=== PATIENT | male | born 1960 | race Caucasian/White ===

== ENCOUNTER 2019-12-17 16:23 | Inpatient (IN) | payer SELFPAY ==
[2019-12-17] MEDS ORDERED: NA CHLORIDE 0.9% 1,000 ML ONE (17:20)
[2019-12-17] MEDS ORDERED: PANTOPRAZOLE 40 MG INJ ONE (17:20)
[2019-12-17 18:10] LABS: Absolute Lymphocytes (CBC) 1.5 K/uL (0.7-4.9); Basophils % 0.3 % (0-1.3); Hematocrit 46.6 % (39.6-49.0); Lymphocytes % 9.5 % (15.3-44.8); MPV 8.6 fL (7.6-11.3); RBC Red Blood Cell Count 4.71 M/uL (4.33-5.43)
[2019-12-17 18:45] LABS: ALT/SGPT 17 U/L (12-78); AST/SGOT 11 U/L (15-37); Albumin 3.6 g/dL (3.4-5.0); Alkaline Phosphatase 106 U/L (45-117); BUN Blood Urea Nitrogen 7 mg/dL (7-18); Bicarbonate 28 mmol/L (21-32); Bilirubin Direct 0.1 mg/dL (0-0.2); Bilirubin Total 0.6 mg/dL (0.2-1.0); Glucose Level 83 mg/dL (74-106); Lipase 53 U/L (73-393); Potassium 4.2 mmol/L (3.5-5.1); Sodium Level 131 mmol/L (136-145)
--- NOTE | 2019-12-17 19:47 | RAD REPORT ---
EXAM DESCRIPTION: CT - Abdomen Pelvis W Contrast - 12/17/2019 7:12 pm CLINICAL HISTORY: ABD PAIN, right upper quadrant pain, black stools, history of GI bleed COMPARISON: No comparisons TECHNIQUE: Biphasic, helical CT imaging of the abdomen and pelvis was performed following 100 ml non -ionic IV contrast. No oral contrast administered. All CT scans are performed using dose optimization technique as appropriate and may include automated exposure control or mA/KV adjustment according to patient size. FINDINGS: No suspicious findings in the lung bases. The liver, spleen, and pancreas show no suspicious findings. Gallbladder and biliary tree are also wi thout suspicious finding. Symmetric renal function is seen with no hydronephrosis or suspicious renal mass. No pyelonephritis o r acute parenchymal process. No bladder abnormalities. No adrenal abnormalities. No gastric dilatation or wall thickening. No dilated small bowel loops. In the right mid abdomen ros g the pericolic gutter there is a 6 centimeter heterogeneous phlegmonous mass. Edema and stranding villarreal rrounds this collection. Collection is near the tip of the cecum. A separate normal appendix is not i dentifiable. The primary considerations are a perforated retrocecal appendicitis. Malignancy with per foration at the tip of the cecum cannot be excluded. The phlegmonous mass is not seen as a drainable fluid collection at this time. No free air or pneumatosis. No other focal area of inflammatory stranding. No hernia, mass or bulky l ymphadenopathy. No suspicious bony findings. IMPRESSION: [place] 26 centimeter heterogeneous phlegmonous mass in the right mid abdomen in the peric olic gutter. Primary considerations is perforated retrocecal appendicitis. Malignancy of the cecum with perforati on would be an additional consideration. The phlegmonous mass is not currently a drainable collection.
[2019-12-17] MEDS ORDERED: CIPROFLOXACIN 400mg IV 400 MG/200 ML BAG IV ONE (19:56)
[2019-12-17] MEDS ORDERED: FENTANYL CITR 100 MCG/2 ML ONE (20:37)
--- NOTE | 2019-12-17 22:50 | ER ---
Nurse's Notes [facility] Name: Riccardo Shankar Age: 59 yrs Sex: Male : 1960 Arrival Date: 12/17/2019 Time: 16:25 Bed 20 Private MD: Diagnosis: Unspecified acute appendicitis-perforated, retro-cecal Presentation: 12/17 16:35 Presenting complaint: Patient states: RUQ pain that began on November 24. Pt states aa5 "I've ran a fever about 4 times over the last 2 weeks and the highest was about 101.7 F". Pt also reports black stool this morning. Denies diarrhea. Transition of care: patient was not received from another setting of care. Onset of symptoms was November 2019. Risk Assessment: Do you want to hurt yourself or someone else? Patient reports no desire to harm self or others. Initial Sepsis Screen: Does the patient meet any 2 criteria? No. Patient's initial sepsis screen is negative. Does the patient have a suspected source of infection? No. Patient's initial sepsis screen is negative. Care prior to arrival: None. 16:35 Acuity: SRIDEVI 3 aa5 16:35 Method Of Arrival: Ambulatory aa5 Historical: - Allergies: 16:38 PENICILLINS; aa5 16:38 Codeine; aa5 - Home Meds: 16:38 None [Active]; aa5 - PMHx: 16:38 GI Bleed; aa5 - PSHx: 16:38 None; aa5 - Immunization history:: Adult Immunizations unknown. - Coronavirus screen:: The patient has NOT traveled to [place], [place], or [place] in the past 14 days. The patient has NOT had contact with known/suspected case of Coronavirus?. - Social history:: Smoking status: Patient reports the use of cigarette tobacco products, smokes one-half pack cigarettes per day. - Ebola Screening: : No symptoms or risks identified at this time. Screenin:54 Abuse screen: Denies threats or abuse. Nutritional screening: No deficits noted. tw2 Tuberculosis screening: No symptoms or risk factors identified. Fall Risk None identified. Assessment: 16:40 General: Appears in no apparent distress. slender, Behavior is calm, cooperative, tw2 appropriate for age. Pain: Complains of pain in abdomen. Neuro: Level of Consciousness is awake, alert, obeys commands, Oriented to person, place, time, situation. Cardiovascular: Heart tones S1 S2 Patient's skin is warm and dry. Respiratory: Airway is patent Respiratory effort is even, unlabored, Respiratory pattern is regular, symmetrical, Breath sounds are clear bilaterally. GI: Abdomen is flat, Bowel sounds present X 4 quads. Reports lower abdominal pain, upper abdominal pain, rectal bleeding. : No signs and/or symptoms were reported regarding the genitourinary system. EENT: No signs and/or symptoms were reported regarding the EENT system. Derm: No signs and/or symptoms reported regarding the dermatologic system. Skin Skin is dry, Skin temperature is warm. Musculoskeletal: Range of motion: intact in all extremities. 17:40 Reassessment: Patient appears in no apparent distress at this time. No changes from tw2 previously documented assessment. Patient and/or family updated on plan of care and expected duration. Pain level reassessed. Patient is alert, oriented x 3, equal unlabored respirations, skin warm/dry/pink. 18:40 Reassessment: Patient appears in no apparent distress at this time. No changes from tw2 previously documented assessment. Patient and/or family updated on plan of care and expected duration. Pain level reassessed. Patient is alert, oriented x 3, equal unlabored respirations, skin warm/dry/pink. 19:07 Reassessment: pt in CT at this time. tw2 19:15 Reassessment: Patient appears in no apparent distress at this time. Patient and/or family updated on plan of care and expected duration. Pain level reassessed. Patient is alert, oriented x 3, equal unlabored respirations, skin warm/dry/pink. 20:43 Reassessment: Patient appears in no apparent distress at this time. No changes from previously documented assessment. Patient and/or family updated on plan of care and expected duration. Pain level reassessed. Patient is alert, oriented x 3, equal unlabored respirations, skin warm/dry/pink. 21:58 Reassessment: Patient appears in no apparent distress at this time. No changes from previously documented assessment. Patient and/or family updated on plan of care and expected duration. Pain level reassessed. Patient is alert, oriented x 3, equal unlabored respirations, skin warm/dry/pink. Patient states feeling better. Patient states symptoms have improved. 23:00 Reassessment: Patient appears in no apparent distress at this time. No changes from previously documented assessment. Patient and/or family updated on plan of care and expected duration. Pain level reassessed. Patient is alert, oriented x 3, equal unlabored respirations, skin warm/dry/pink. MD at bedside explaining POC. 12/18 00:00 Reassessment: Patient appears in no apparent distress at this time. No changes from previously documented assessment. Patient and/or family updated on plan of care and expected duration. Pain level reassessed. Patient is alert, oriented x 3, equal unlabored respirations, skin warm/dry/pink. Pt admitted to ER hold. 12:14 Reassessment: Unable to give report at this time. GI Simms is discharging another pt. rb1 per PUNEET Atkinson. GI Simms will call me back. 12:25 Reassessment: Called report to GI Simms. Information from the SBAR was given. All rb1 questions asked and answered. Vital Signs: 12/17 16:38 BP 141 / 94; Pulse 81; Resp 16 S; Temp 98.2(O); Pulse Ox 97% on R/A; Weight 68.95 kg aa5 (R); Height 6 ft. 0 in. (182.88 cm) (R); Pain 3/10; 18:00 BP 126 / 106; Pulse 69; Resp 17; Pulse Ox 95% on R/A; tw2 19:15 BP 159 / 85; Pulse 86; Resp 18; Pulse Ox 99% on R/A; wh 20:43 BP 148 / 87; Pulse 79; Resp 18; Pulse Ox 97% on R/A; wh 21:58 BP 140 / 77; Pulse 73; Resp 18; Pulse Ox 98% on R/A; wh 23:00 BP 130 / 74; Pulse 80; Resp 18; Pulse Ox 95% on R/A; wh 12/18 00:00 BP 129 / 66; Pulse 80; Resp 18; Pulse Ox 97% on R/A; wh 12/17 16:38 Body Mass Index 20.61 (68.95 kg, 182.88 cm) aa5 ED Course: 12/17 16:25 Patient arrived in ED. as 16:27 Maria Esther Marie F[facility]-C [facility] snw 16:27 Tj Deluca MD is Attending Physician. snw 16:34 Arm band placed on. aa5 16:34 Bed in low position. Call light in reach. tw2 16:37 Triage completed. aa5 16:46 Cleopatra Hamm RN is Primary Nurse. tw2 17:55 Inserted saline lock: 20 gauge in left antecubital area, using aseptic technique. Blood tw2 collected. 18:20 Missed attempt(s): 20 gauge in right antecubital area. Bleeding controlled, band aid dh3 applied, catheter tip intact. 18:22 Inserted saline lock: 22 gauge in right forearm, using aseptic technique. dh3 19:06 Report given to GI Ndiaye. tw2 19:12 CT Abd/Pelvis - IV Contrast Only In Process Unspecified. EDMS 22:48 Sobia Jaimes MD is Hospitalizing Provider. [facility] 12/18 00:00 No provider procedures requiring assistance completed. Patient admitted, IV remains in wh place. 06:46 Primary Nurse role handed off by Cleopatra Hamm RN eb 12:10 Jacquie Armenta RN is Primary Nurse. rb1 13:15 No provider procedures requiring assistance completed. Patient admitted, IV remains in rb1 place. Administered Medications: 12/17 17:55 Drug: ProTONIX 40 mg Route: IVP; Site: left antecubital; tw2 18:59 Follow up: Response: No adverse reaction [facility] 12/18 02:49 Follow up: Response: No adverse reaction 12/17 18:01 Drug: NS 0.9% 1000 ml Route: IV; Rate: 125 ml/hr; Site: left antecubital; [facility] 12/18 02:49 Follow up: Response: No adverse reaction; IV Status: Infusion continued upon admission 12/17 19:58 Drug: Cipro 400 mg Volume: 200 ml; Route: IVPB; Infused Over: 60 mins; Site: right forearm; 12/18 02:49 Follow up: Response: No adverse reaction; IV Status: Completed infusion 12/17 20:37 Drug: fentaNYL (PF) 50 mcg Route: IVP; Site: left antecubital; 12/18 02:50 Follow up: Response: No adverse reaction; Pain is decreased; RASS: Alert and Calm (0) Outcome: 12/17 22:49 Decision to Hospitalize by Provider. sn 12/18 00:00 Admitted to ER Hold. Please see [facility] for further documentation. wh Condition: stable Instructed on the need for admit. 13:15 Patient left the ED. rb1 13:15 Admitted to Tele accompanied by tech, via stretcher, room 427, with chart, Report rb1 called to GI Simms 13:15 Condition: stable 13:15 Instructed on the need for admit. Signatures: Dispatcher [employer] EDMS Maria Esther Marie, CAR BLOCKER-C CAR BLOCKER-Csnw Ashanti Quiroz Audri, RN RN aa5 Jacquie Armenta, RN RN rb1 Cleopatra Hamm RN RN 2 Codi Damian 3 Zelda Rdz Mariam Rodgers Corrections: (The following items were deleted from the chart) 13:17 12:14 Reassessment: Called report to GI Simms. Information from the SBAR was given. All rb1 questions asked and answered. rb1
--- NOTE | 2019-12-17 22:50 | EDPHYS ---
Physician Documentation [facility] Name: Riccardo Shankar Age: 59 yrs Sex: Male : 1960 Arrival Date: 12/17/2019 Time: 16:25 Bed 20 Private MD: ED Physician Tj Deluca HPI: 12/17 17:46 This 59 yrs old Male presents to ER via Ambulatory with complaints of snw Epigastric Pain. 17:46 The patient presents with abdominal pain dark stools. Onset: The symptoms/episode snw began/occurred gradually, 3 week(s) ago, and became persistent. The symptoms do not radiate. Associated signs and symptoms: Pertinent positives: anorexia, Pertinent negatives: vomiting, vomiting blood. The symptoms are described as crampy. Severity of pain: At its worst the pain was moderate. The patient has experienced a previous episode, approximately 15 years ago, "gastric rupture". The patient has not recently seen a physician. Heavy ETOH, decreased lately. has had 11 beers over past 4 days. Historical: - Allergies: 16:38 PENICILLINS; aa5 16:38 Codeine; aa5 - Home Meds: 16:38 None [Active]; aa5 - PMHx: 16:38 GI Bleed; aa5 - PSHx: 16:38 None; aa5 - Immunization history:: Adult Immunizations unknown. - Coronavirus screen:: The patient has NOT traveled to [place], [place], or [place] in the past 14 days. The patient has NOT had contact with known/suspected case of Coronavirus?. - Social history:: Smoking status: Patient reports the use of cigarette tobacco products, smokes one-half pack cigarettes per day. - Ebola Screening: : No symptoms or risks identified at this time. ROS: 17:42 Constitutional: Negative for fever, chills, and weight loss, Eyes: Negative for injury, snw pain, redness, and discharge, ENT: Negative for injury, pain, and discharge, Neck: Negative for injury, pain, and swelling, Cardiovascular: Negative for chest pain, palpitations, and edema, Respiratory: Negative for shortness of breath, cough, wheezing, and pleuritic chest pain, Back: Negative for injury and pain, : Negative for injury, bleeding, discharge, and swelling, MS/Extremity: Negative for injury and deformity, Skin: Negative for injury, rash, and discoloration, Neuro: Negative for headache, weakness, numbness, tingling, and seizure. 17:42 Abdomen/GI: Positive for abdominal pain, black/tarry stool, of the right upper quadrant. Exam: 17:41 Constitutional: This is a well developed, well nourished patient who is awake, alert, snw and in no acute distress. Head/Face: Normocephalic, atraumatic. 17:41 ENT: Nares patent. No nasal discharge, no septal abnormalities noted. Tympanic membranes are normal and external auditory canals are clear. Oropharynx with no redness, swelling, or masses, exudates, or evidence of obstruction, uvula midline. Mucous membranes moist. Neck: Trachea midline, no thyromegaly or masses palpated, and no cervical lymphadenopathy. Supple, full range of motion without nuchal rigidity, or vertebral point tenderness. No Meningismus. Chest/axilla: Normal chest wall appearance and motion. Nontender with no deformity. No lesions are appreciated. Cardiovascular: Regular rate and rhythm with a normal S1 and S2. No gallops, murmurs, or rubs. Normal PMI, no JVD. No pulse deficits. Respiratory: Lungs have equal breath sounds bilaterally, clear to auscultation and percussion. No rales, rhonchi or wheezes noted. No increased work of breathing, no retractions or nasal flaring. Abdomen/GI: Soft, non-tender, with normal bowel sounds. No distension or tympany. No guarding or rebound. Mild tenderness of right mid abdomen, hyperactive bowel sounds throughout. Back: No spinal tenderness. No costovertebral tenderness. Full range of motion. Skin: Warm, dry with normal turgor. Normal color with no rashes, no lesions, and no evidence of cellulitis. MS/ Extremity: Pulses equal, no cyanosis. Neurovascular intact. Full, normal range of motion. Neuro: Awake and alert, GCS 15, oriented to person, place, time, and situation. Cranial nerves II-XII grossly intact. Motor strength 5/5 in all extremities. Sensory grossly intact. Cerebellar exam normal. Normal gait. 17:41 Eyes: Pupils: no acute changes, Extraocular movements: no acute changes, Conjunctiva: pale, bilaterally, mildly. Vital Signs: 16:38 BP 141 / 94; Pulse 81; Resp 16 S; Temp 98.2(O); Pulse Ox 97% on R/A; Weight 68.95 kg aa5 (R); Height 6 ft. 0 in. (182.88 cm) (R); Pain 3/10; 18:00 BP 126 / 106; Pulse 69; Resp 17; Pulse Ox 95% on R/A; tw2 19:15 BP 159 / 85; Pulse 86; Resp 18; Pulse Ox 99% on R/A; wh 20:43 BP 148 / 87; Pulse 79; Resp 18; Pulse Ox 97% on R/A; wh 21:58 BP 140 / 77; Pulse 73; Resp 18; Pulse Ox 98% on R/A; wh 23:00 BP 130 / 74; Pulse 80; Resp 18; Pulse Ox 95% on R/A; wh 12/18 00:00 BP 129 / 66; Pulse 80; Resp 18; Pulse Ox 97% on R/A; wh 12/17 16:38 Body Mass Index 20.61 (68.95 kg, 182.88 cm) aa5 MDM: 12/17 16:49 Patient medically screened. snw 20:25 Data reviewed: vital signs, nurses notes. Data interpreted: Pulse oximetry: on room air snw is 99 %. Interpretation: normal. Counseling: I had a detailed discussion with the patient and/or guardian regarding: the historical points, exam findings, and any diagnostic results supporting the discharge/admit diagnosis, the presence of at least one elevated blood pressure reading (>120/80) during this emergency department visit, lab results, radiology results, the need for further work-up and treatment in the hospital. Physician consultation: Marvin Shipley MD was called at 20:18, was contacted at 20:18, regarding consult. 20:26 Physician consultation: and will see patient in inpatient room, would like admission snw per Dr. Sobia Jaimes MD will contact Dr. Jaimes. 12/17 16:48 [facility] name[facility] 12/17 16:48 Order name: Stool Culture [facility] 12/17 16:48 Order name: Occult Blood [facility] 12/17 16:48 Order name: Basic Metabolic Panel; Complete Time: 18:51 [facility] 12/17 16:48 Order name: CBC with Diff; Complete Time: 18:25 [facility] 12/17 16:48 Order name: Creatinine for Radiology; Complete Time: 18:51 snw 12/17 16:48 Order name: Hepatic Function; Complete Time: 18:51 snw 12/17 16:48 Order name: Lipase; Complete Time: 18:51 w 12/18 03:26 Order name: CBC with Automated Diff; Complete Time: 10:10 EDMS 12/18 03:33 Order name: Protime (+INR); Complete Time: 10:10 EDMS 12/18 04:29 Order name: Lactate; Complete Time: 10:10 EDMS 12/18 04:39 Order name: Comprehensive Metabolic Panel; Complete Time: 10:10 EDMS 12/18 04:39 Order name: Lipid Profile; Complete Time: 10:10 EDMS 12/18 04:39 Order name: Magnesium; Complete Time: 10:10 EDMS 12/17 16:48 Order name: Labs collected and sent; Complete Time: 18:02 w 12/17 16:48 Order name: CT Abd/Pelvis - IV Contrast Only; Complete Time: 19:50 w 12/17 19:49 Order name: NPO; Complete Time: 19:51 w 12/17 19:49 Order name: Consult Surgery-Marvin Shipley MD (GENERAL SURGERY) [facility] 12/18 04:39 Order name: Thyroid Stimulating Hormone; Complete Time: 10:10 EDMS 12/18 04:49 Order name: Procalcitonin; Complete Time: 10:10 EDMS Administered Medications: 17:55 Drug: ProTONIX 40 mg Route: IVP; Site: left antecubital; [facility] 18:59 Follow up: Response: No adverse reaction [facility] 12/18 02:49 Follow up: Response: No adverse reaction 12/17 18:01 Drug: NS 0.9% 1000 ml Route: IV; Rate: 125 ml/hr; Site: left antecubital; 12/18 02:49 Follow up: Response: No adverse reaction; IV Status: Infusion continued upon admission 12/17 19:58 Drug: Cipro 400 mg Volume: 200 ml; Route: IVPB; Infused Over: 60 mins; Site: right wh forearm; 12/18 02:49 Follow up: Response: No adverse reaction; IV Status: Completed infusion 12/17 20:37 Drug: fentaNYL (PF) 50 mcg Route: IVP; Site: left antecubital; 12/18 02:50 Follow up: Response: No adverse reaction; Pain is decreased; RASS: Alert and Calm (0) Disposition: 17:04 Co-signature as Attending Physician, Tj Deluca MD I agree with the assessment and kdr plan of care. Disposition: 12/17/19 22:49 Hospitalization ordered by Sobia Jaimes for Inpatient Admission. Preliminary diagnosis is Unspecified acute appendicitis - perforated, retro-cecal. - Bed requested for Telemetry/MedSurg (Inpatient). - Status is Inpatient Admission. rb1 - Condition is Stable. - Problem is new. - Symptoms are unchanged. UTI on Admission? No Signatures: Dispatcher [employer] EDMS eDbbi Chan, ROLLER CHECKER-C ROLLER CHECKER-Ckb Tj Deluca MD MD [facility] Maria Esther Marie FNP-C ROLLER CHECKER-Csnw Ruchi Costello, GI RN aa5 Lily Toscano RN RN Jacquie Armenta RN RN rb1 Cleopatra Hamm RN RN tw2 Zelda Rdz Mariam Rodgers Corrections: (The following items were deleted from the chart) 12/17 23:59 22:49 Hospitalization Ordered by Sobia Jaimes MD for Inpatient Admission. Preliminary cg diagnosis is Unspecified acute appendicitis - perforated, retro-cecal. Bed requested for Telemetry/MedSurg (Inpatient). Status is Inpatient Admission. Condition is Stable. Problem is new. Symptoms are unchanged. UTI on Admission? No. snw 12/18 00:32 12/17 23:59 12/17/2019 22:49 Hospitalization Ordered by Sobia Jaimes MD for Inpatient cg Admission. Preliminary diagnosis is Unspecified acute appendicitis - perforated, retro-cecal. Bed requested for Telemetry/MedSurg (Inpatient). Status is Inpatient Admission. Condition is Stable. Problem is new. Symptoms are unchanged. UTI on Admission? No. cg 12/18 01:56 00:32 12/17/2019 22:49 Hospitalization Ordered by Sobia Jaimes MD for Inpatient cg Admission. Preliminary diagnosis is Unspecified acute appendicitis - perforated, retro-cecal. Bed requested for Telemetry/MedSurg (Inpatient). Status is Inpatient Admission. Condition is Stable. Problem is new. Symptoms are unchanged. UTI on Admission? No. cg 12:04 01:56 12/17/2019 22:49 Hospitalization Ordered by Sobia aJimes MD for Inpatient eb Admission. Preliminary diagnosis is Unspecified acute appendicitis - perforated, retro-cecal. Bed requested for [facility] ER HOLD. Status is Inpatient Admission. Condition is Stable. Problem is new. Symptoms are unchanged. UTI on Admission? No. cg 13:15 12:04 12/17/2019 22:49 Hospitalization Ordered by Sobia Jaimes MD for Inpatient rb1 Admission. Preliminary diagnosis is Unspecified acute appendicitis - perforated, retro-cecal. Bed requested for Telemetry/MedSurg (Inpatient). Status is Inpatient Admission. Condition is Stable. Problem is new. Symptoms are unchanged. UTI on Admission? No. eb
--- NOTE | 2019-12-17 23:52 | P.HP ---
Certification for Inpatient With expected LOS: >2 Midnights Practitioner: I am a practitioner with admitting privileges, knowledge of patient current condition, hospital course, and medical plan of care. Services: Services provided to patient in accordance with Admission requirements found in Title 42 Section 412.3 of the Code of Federal Regulations Patient History Date of Service: 12/18/19 Reason for admission: perforated appendix History of Present Illness: nohemy myles is a 59yoM w/ pmhx of tobacco/etoh dependence, and h/o gastric ulcer rupture/bleeding who presents w/ 2 weeks of abdominal pain. he states that yesterday his pain was significant and that he sought out medical managment. he reports the pain as RUQ and states that eating worsens the pain. he noted that he has been constipated and thus took 8 senokot in 48hrs just to relieve the constipation. but the moment he started to eat he started to have more abdominal discomfort. he reports back pain, bloating, fever, fluctuating appetite and chills. he denies N/V, cp, sob, wayne, dizziness, syncope. on ED evaluation he is found to have perforated appendix, thus gen surgery consulted and aware w/ recommendation for IV abx and they will consult. he drinks 4 beers daily x 2 years and smokes 1/2 pk/day > 30yrshx of ruptured gastric ulcer tobacco and etoh dependence Allergies Penicillins Allergy (Mild, Verified 12/18/19 17:40) Hives/Rash codeine Allergy (Verified 12/18/19 02:36) Anaphylaxis tramadol Allergy (Verified 12/18/19 17:40) Nausea/Vomiting Home Medications: NK [No Home Meds] 12/18/19 Physical Examination - Physical Exam General: Alert, In no apparent distress, Oriented x3, Cooperative, Other ( slender male, conversant, a/ox3, appears fraile.) HEENT: Atraumatic Neck: Supple Respiratory: Diminished, Inspiratory wheezes Cardiovascular: No edema, No murmurs Capillary refill: <2 Seconds Gastrointestinal: No rebound, Other (soft, but noted RUQ pain w/ light palpation ), Hyperactive, Tenderness ( at RUQ ) Musculoskeletal: No swelling Integumentary: No rashes, No breakdown, No cyanosis Neurological: Normal speech, Other (gait not tested) External genitalia: Deferred Rectal: Deferred - Studies Laboratory Data (last 24 hrs) 12/17/19 17:40: Creatinine 0.80 12/17/19 17:40: WBC 15.8 H, Hgb 15.5, Hct 46.6, Plt Count 373 12/17/19 17:40: Sodium 131 L, Potassium 4.2, BUN 7, Creatinine 0.84, Glucose 83 , Total Bilirubin 0.6, AST 11 L, ALT 17, Alkaline Phosphatase 106, Lipase 53 L Microbiology Data (last 24 hrs): 12/17/19 16:48 Stool Occult Blood - Final PERSONAL FITNESS TRAINER Assessment and Plan - Plan 59yo M admitted w/ perforated appendix - w/ hx of ruptured gastric ulcer/bleeding made npo and c/w wilth IVF and reassess. will allow ice chips gen surg consulted and aware of patient tele monitoring, a1c, tsh, lipid panel obtain procal, blood cultures supplemental o2, analgesics and monitor UOP nicotine and etoh dependence counseled on cessation educated on dieteay and lifestyle changes. DVT avoid AC, c/w SCD - Advance Directives Does patient have a Living Will: No Does patient have a Durable POA for Healthcare: No
[2019-12-18] MEDS ORDERED: ONDANSETRON 4 MG/2 ML VIAL IV PRN (00:57)
[2019-12-18] MEDS ORDERED: IPRATROPIUM BROM 0.5MG/2.5ML NEB PRN (00:57)
[2019-12-18] MEDS ORDERED: ALBUTEROL 2.5 MG/3 ML NEB SOL NEB PRN (00:57)
[2019-12-18] MEDS ORDERED: LORAZEPAM 0.5 MG TABLET PO PRN ×2 (00:57)
[2019-12-18] MEDS: NA CHLORIDE 0.9% 1,000 ML IV SCH ×4 (01:00→23:58)
[2019-12-18 03:25] LABS: Basophils % 0.1 % (0-1.3); Hematocrit 47.7 % (39.6-49.0); MPV 8.4 fL (7.6-11.3); RBC Red Blood Cell Count 4.89 M/uL (4.33-5.43)
[2019-12-18 03:28] LABS: Protime INR 1.31
[2019-12-18] MEDS: NICOTINE 14 MG/PAT TD SCH ×3 (04:00→09:00)
[2019-12-18] MEDS ORDERED: MORPHINE 2 MG/ML SYR ONE ×2 (04:04→10:05)
[2019-12-18] MEDS: MORPHINE 2 MG/ML SYR IV PRN ×4 (04:08→19:45)
[2019-12-18 04:36] LABS: ALT/SGPT 13 U/L (12-78); AST/SGOT 7 U/L (15-37); Albumin 3.1 g/dL (3.4-5.0); Alkaline Phosphatase 92 U/L (45-117); BUN Blood Urea Nitrogen 6 mg/dL (7-18); Bicarbonate 25 mmol/L (21-32); Bilirubin Total 0.8 mg/dL (0.2-1.0); Glucose Level 99 mg/dL (74-106); HDL Cholesterol 41 mg/dL (40-60); LDL Cholesterol, Calculated 100 (<130); Magnesium 2.1 mg/dL (1.8-2.4); Potassium 4.1 mmol/L (3.5-5.1); Sodium Level 133 mmol/L (136-145)
[2019-12-18] MEDS ORDERED: NA CHLORIDE 0.9% 1,000 ML ONE (08:27)
[2019-12-18] MEDS ORDERED: NICOTINE 21 MG/PAT TD ONE (08:27)
[2019-12-18] MEDS ORDERED: CIPROFLOXACIN 400mg IV 400 MG/200 ML BAG IV SCH (09:00)
[2019-12-18] MEDS ORDERED: FOLIC ACID 1 MG, MULTIVITAMINS INJ 10 ML, THIAMINE HCL 100 MG in NA CHLORIDE 0.9% 1,000 ML IV SCH (09:00)
[2019-12-18] MEDS ORDERED: PIPER/TAZO/NS 3.375gm 3.375 GM/100 ML BAG IVPB SCH (09:00)
[2019-12-18] MEDS: METRONIDAZOLE 500mg IVPB 500 MG/100 ML BAG IV SCH ×3 (12:00→23:56)
--- NOTE | 2019-12-18 12:52 | CON ---
Date of Consultation: 12/17/2019 Reason For Consultation: Abdominal pain. History Of Present Illness: Patient is a 59-year-old gentleman with right-sided abdominal pain appro ximately 3 weeks in duration, off and on, associated with 1 episode of vomiting. He has chronic depe ndence on alcohol and tobacco. Denies any weight loss. He says he had some dark bloody stool at 1 p oint. The pain is in the right upper quadrant, right middle quadrant, and a little bit in the right lower quadrant. He has had fluctuating fever, chills, anorexia. No sore throat, runny nose, cough, headaches, or dizziness. No chest pain. Review of Systems: Otherwise unremarkable. Medical History: History of gastric ulcers. Past Surgical History: Either he had a Ken patch done or an EGD with control of bleeding from an ulcer, he is not sure. Allergies: INCLUDE CODEINE AND PENICILLIN. Social History: He does smoke and drink alcohol. He has been counseled. Family History: Noncontributory. Physical Examination: Vital Signs: Stable. He is currently afebrile. General: He is awake, alert, oriented x3. Cranial nerves 2 through 12 are grossly within normal ohara its. Neck: No neck masses. No JVD. Throat clear. Neck supple. Chest: Clear. Heart: S1 and S2. Abdomen: Soft, nondistended. Positive bowel sounds. Positive right upper, middle, and lower quadra nt tenderness with minimal rebound. No rigidity or guarding. Extremities: Adequately perfused. Nontender. Neuro: Nonfocal. Laboratory Data: White count on admission was 13.8, currently is 16.3. There is a left shift. INR is 1.3. Chemistry reviewed. His procalcitonin is normal. His lactic acid is normal. CT of the abd omen and pelvis reviewed. It shows a 6 cm phlegmonous mass in the right mid abdomen in the pericolic gutter. Primary consideration is perforated retrocecal appendicitis. Malignancy to the cecum with perforation would be an additional consideration and this is not amenable to percutaneous drainage at this point. Assessment: Perforated appendicitis likely with phlegmonous mass. Recommendations: Continue n.p.o., IV fluids, IV antibiotics. Serial abdominal exam. If he can impr ove on antibiotics, he can be discharged with a followup and if this phlegmonous mass liquifies, then he would be amenable to percutaneous drainage followed by interval colonoscopy, followed by interval appendectomy. I agree with DT prophylaxis, which the patient is on. We will add Flagyl to Jeanethro th e patient is on, and we will follow this patient while in the hospital. ROSSY/DEBORA Voice ID: [id number] Report ID: [id number]
--- NOTE | 2019-12-18 17:31 | PN ---
Date of Progress Note: 12/18/2019 Subjective: Patient is seen and examined. Chart reviewed and case discussed with RN and Dr. Shipley. Patient still reports some pain having high fevers, temperature of 101.8. Medications: List reviewed. Physical Examination: Vital Signs: T current is 99, T-max 101.8, heart rate 96, blood pressure 181/80 , respirations 20, O2 of 98% on room air. General: Awake, alert, oriented x3, in some mild distress, appears older than stated age ill-appearing male. CV: S1, S2. Regular rate and rhythm. Respiratory: Moving air well bilaterally. Abdomen: Soft. Tenderness to palpation in the right lower quadrant. Voluntary guarding is present. No rigidity. Hypoactive bowel sounds. Extremities: No clubbing, cyanosis, edema. Neurologic: Nonfocal. Laboratory Data: Sodium 133, potassium 4.1, chloride 102, CO2 of 25, BUN 6, creatinine 0.74, glucose 99, lactate 0.7, calcium 8.6, magnesium 2.1. Procalcitonin less than 0.05. TSH 1.820. WBC 16.3, H and H 16 and 47.7, platelets 355, neutrophils 84%. Assessment: A 59-year-old male with: 1. Perforated appendix with phelgmon abscess. We will continue with IV antibiotics. Case discussed with Dr. Shipley. Conservative treatment for now. Continue n.p.o. status. Patient will be spiking high fevers. 2. Hyponatremia. We will continue with IV fluids and monitor. 3. History of gastric ulcers. 4. Nicotine dependance: continuous, uncomplicated. Counseled. 5. Etoh abuse: monitor for signs of withdrawal. Multivitamins Plan: DVT prophylaxis, SCDs. Continue with IV antibiotics. Patient will eventually need colonoscopy and resection later on per Dr. Shipley. SA/MODL Voice ID: [id number] Report ID: [id number] MTDD
[2019-12-18 17:48] LABS: Urine Appearance CLEAR; Urine Bilirubin NEGATIVE (NEG); Urine Blood 2+ (NEG); Urine Color YELLOW; Urine Glucose NEGATIVE (NEG); Urine Protein NEGATIVE (NEG); Urine Specific Gravity 1.015 (1.005-1.030)
[2019-12-18 18:21] LABS: Urine Bacteria <20 /HPF (NONE SEEN); Urine Culture Reflex Order NOT NEEDED; Urine RBC <5 /HPF (NONE SEEN)
[2019-12-18] MEDS: CIPROFLOXACIN 400mg IV 400 MG/200 ML BAG IV SCH ×2 (19:45→21:00)
[2019-12-19] MEDS: MORPHINE 2 MG/ML SYR IV PRN ×4 (02:48→19:45)
[2019-12-19] MEDS: METRONIDAZOLE 500mg IVPB 500 MG/100 ML BAG IV SCH ×3 (06:16→17:44)
[2019-12-19 06:35] LABS: Absolute Lymphocytes (CBC) 1.2 K/uL (0.7-4.9); Basophils % 0.7 % (0-1.3); Hematocrit 41.7 % (39.6-49.0); Lymphocytes % 7.5 % (15.3-44.8); RBC Red Blood Cell Count 4.25 M/uL (4.33-5.43)
[2019-12-19 06:42] LABS: Magnesium 2.1 mg/dL (1.8-2.4); Potassium 4.4 mmol/L (3.5-5.1)
[2019-12-19] MEDS: NA CHLORIDE 0.9% 1,000 ML IV SCH ×2 (07:00→17:00)
[2019-12-19] MEDS: CIPROFLOXACIN 400mg IV 400 MG/200 ML BAG IV SCH ×2 (08:43→21:02)
[2019-12-19] MEDS: NICOTINE 14 MG/PAT TD SCH (08:49)
--- NOTE | 2019-12-19 11:53 | PN ---
Date of Progress Note: 12/19/2019 Patient was awake, alert, feels better. Vital signs are stable. Afebrile. White count is still vlad vated to 15,000. The abdomen is soft, nondistended. There is tenderness in the right side, but suzy le bit less than yesterday. Assessment: Likely perforated appendicitis with phlegmon. Recommendations: Continue IV antibiotics, serial abdominal exam. We will repeat the CAT scan tomorr ow to see if it is beginning to liquify, put him on clear liquids today. We will follow this patient . ROSSY/DEBORA Voice ID: [id number] Report ID: [id number]
--- NOTE | 2019-12-19 12:32 | PN ---
Date of Progress Note: 12/19/2019 Subjective: Patient is seen and examined. Chart reviewed and case discussed with RN and Dr. Shipley. Plan is for repeat CT in a.m. Patient is still complaining of significant amount of pain. at the bedside. Treatment plan explained. All questions answered. Medications: List reviewed. Physical Examination: Vital Signs: Temperature 100.2, heart rate 81, blood pressure 126/74, respirations 18, O2 of 93% on room air. General: Awake, alert, oriented x3, in mild distress, appears older than stated age. CV: S1, S2. Regular rate and rhythm. Peripheral pulses present. Respiratory: Moving air well bilaterally. No wheezing or stridor. Gastrointestinal: Abdomen is tender to palpation in the right lower quadrant. Hypoactive bowel soun ds. Minimal distention. Voluntary guarding is present. No rigidity. Extremities: No clubbing, cyanosis, or edema. Neurologic: Nonfocal. Laboratory Data: Sodium 134, potassium 4.4, chloride 102, CO2 of 26, BUN 8, creatinine 0.9, glucose 92, calcium 8.6, phosphorus 3, magnesium 2. WBC 15.7, H and H of 13.9 and 41.7, platelets 324, neutr ophils 81%. Stool cultures pending. Assessment And Plan: A 59-year-old male with: 1.Perforated appendix with abscess and phlegmonous mass in the right mid abdomen and the pericolic g utter. Continue with IV antibiotics. Patient still continues to spike fevers. We will need to obta in blood cultures and monitor. Plan is for repeat CT in a.m. per Surgery. 2.Hyponatremia, improving. We will continue with IV fluids and monitor. 3.History of gastric ulcer. We will start on PPI. Disposition: Likely in the next 48 to 72 hours, pending clinical improvement. /DEBORA Voice ID: [id number] Report ID: [id number]
[2019-12-19] MEDS: FOLIC ACID 1 MG, MULTIVITAMINS INJ 10 ML, THIAMINE HCL 100 MG in NA CHLORIDE 0.9% 1,000 ML IV SCH (12:45)
[2019-12-19] MEDS: FAMOTIDINE 20 MG/2 ML VIAL IV SCH (21:02)
[2019-12-20] MEDS: METRONIDAZOLE 500mg IVPB 500 MG/100 ML BAG IV SCH ×4 (00:08→17:06)
[2019-12-20] MEDS: NA CHLORIDE 0.9% 1,000 ML IV SCH ×4 (00:10→23:00)
[2019-12-20] MEDS: MORPHINE 2 MG/ML SYR IV PRN ×4 (03:03→19:22)
[2019-12-20 04:18] LABS: Absolute Lymphocytes (CBC) 0.8 K/uL (0.7-4.9); Basophils % 0.4 % (0-1.3); Hematocrit 39.9 % (39.6-49.0); Lymphocytes % 5.4 % (15.3-44.8); MPV 8.1 fL (7.6-11.3); RBC Red Blood Cell Count 4.07 M/uL (4.33-5.43)
[2019-12-20 04:30] LABS: BUN Blood Urea Nitrogen 8 mg/dL (7-18); Bicarbonate 29 mmol/L (21-32); Glucose Level 103 mg/dL (74-106); Potassium 4.2 mmol/L (3.5-5.1); Sodium Level 131 mmol/L (136-145)
[2019-12-20] MEDS: LORazepam 2 MG/ML VIAL IV PRN ×2 (05:37→22:25)
[2019-12-20] MEDS: FAMOTIDINE 20 MG/2 ML VIAL IV SCH ×2 (08:26→21:23)
[2019-12-20] MEDS: NICOTINE 14 MG/PAT TD SCH (08:26)
[2019-12-20] MEDS: CIPROFLOXACIN 400mg IV 400 MG/200 ML BAG IV SCH ×2 (08:26→21:23)
[2019-12-20] MEDS: FOLIC ACID 1 MG, MULTIVITAMINS INJ 10 ML, THIAMINE HCL 100 MG in NA CHLORIDE 0.9% 1,000 ML IV SCH (10:28)
[2019-12-20] MEDS ORDERED: DIPHENHYDRAMINE 50 MG/ML VIAL IV ONE (10:46)
--- NOTE | 2019-12-20 13:08 | RAD REPORT ---
EXAM DESCRIPTION: CT - Abdomen Pelvis W/Wo Contrast - 12/20/2019 11:23 am CLINICAL HISTORY: Abdominal abscess COMPARISON: December 17, 2019 TECHNIQUE: Computed axial tomography of the abdomen and pelvis was obtained. Unenhanced and enhanced images obtained. 100 cc Isovue-300 administered intravenously. Oral contrast given All CT scans are performed using dose optimization technique as appropriate and may include automated exposure control or mA/KV adjustment according to patient size. FINDINGS: The evaluation of solid organs, vessels and bowel is limited secondary to the lack of con trast administration. The multitude loculated abscess within the right lower quadrant has mildly increased in size. The lar gest low-density component measures 5 centimeters and abuts the right iliacus muscle which is thicken ed. The anterior loculated components measuring total 5.5 centimeters. Free air is not seen. The wall of the right cecum is thickened probably secondary inflammation A large diverticulum stems from the distal duodenum IMPRESSION: Multiloculated right lower quadrant abscess mildly increased in size. Perforated appendicitis is considered the most likely etiology
--- NOTE | 2019-12-20 19:11 | PN ---
Date of Progress Note: 12/20/2019 Subjective: Patient is seen and examined. Chart reviewed and case discussed with RN and Dr. Shipley. Patient is still having significant amount of pain in his abdomen, tolerating clears. Medication List: Reviewed. Physical Examination: Vital Signs: Temperature 98.4, heart rate 72, blood pressure 129/71, respirations 16, O2 of 96% on r oom air. General: Awake, alert, oriented x3, in some mild distress due to pain, appears older than stated age , ill-appearing male. CV: S1, S2. Regular rate and rhythm. Peripheral pulses present. Respiratory: Moving air well bilaterally. No wheezing or stridor. No use of accessory muscles. Gastrointestinal: Abdomen is soft. Tenderness to palpation in the right lower quadrant. Voluntary guarding is present. No rigidity. Hypoactive bowel sounds. Extremities: No clubbing, cyanosis, or edema. Neurologic: Nonfocal. Laboratory Data: Sodium 131, potassium 4.2, chloride 97, CO2 of 29, BUN 8, creatinine 0.83, glucose 103, calcium 8.4. WBC 14.4, H and H 13.3 and 39.9, platelets 330, neutrophils 82%. Blood cultures, no growth to date. Occult blood not present. Fecal leukocytes and cultures are pending. CT scan of the abdomen and pelvis, discussed with Dr. Shipley and Dr. Casey. Multiloculated right lower quadr ant abscess, mildly increased in size. Perforated appendicitis is considered the most likely etiolog y. Assessment: A 59-year-old male with: 1.Perforated appendicitis. We will continue with IV antibiotics. Patient does have phlegmonous mas s and abscess. Repeat CT scan with contrast shows multiloculated abscess. Unable to be drained by I R. We will go for laparoscopic drain placement by Dr. Shipley in [facility]. GI has been consulted. 2.Hyponatremia, worsening. We will continue with IV fluids and monitor. 3.History of gastric ulcer. Continue PPI. 4.Nicotine dependence and cigarette smoking. Counseled. Plan: We will anticipate surgery in [facility]. SA/MODL Voice ID: [id number] Report ID: [id number]
--- NOTE | 2019-12-20 19:56 | PN ---
Date of Progress Note: 12/20/2019 Subjective: Patient is awake and alert, still with right-sided abdominal pain. Vitals are stable. He has intermittent spike of temperature at 100.5, last night. Laboratory Data: Shows white count to be 14.4, with a left shift. I repeated the CT of the abdomen and pelvis and it shows multiloculated right lower quadrant abscess, mildly increased in size, and I discussed the case with Dr. Casey, he is not amenable to percutan eous drainage. Assessment: Intraabdominal abscess likely secondary to perforated appendicitis. Recommendations: As conservative medical treatment has failed to improve this patient and he is not amenable to percutaneous drainage. Therefore, we will take the patient to the operating room for lowell gnostic laparoscopy, possible open appendectomy and drainage of intraabdominal abscess. Patient unde rstands the risks, benefits, and alternatives and agrees to procedure. Plan of care was discussed with Dr. Barksdale. ROSSY/DEBORA Voice ID: [id number] Report ID: [id number]
[2019-12-21] MEDS: METRONIDAZOLE 500mg IVPB 500 MG/100 ML BAG IV SCH ×4 (00:36→17:51)
[2019-12-21] MEDS: MORPHINE 2 MG/ML SYR IV PRN ×2 (00:37→05:37)
[2019-12-21 04:18] LABS: Basophils % 0.4 % (0-1.3); Hematocrit 38.1 % (39.6-49.0); MPV 8.6 fL (7.6-11.3); RBC Red Blood Cell Count 3.88 M/uL (4.33-5.43)
[2019-12-21 04:32] LABS: BUN Blood Urea Nitrogen 8 mg/dL (7-18); Bicarbonate 27 mmol/L (21-32); Glucose Level 89 mg/dL (74-106); Potassium 3.6 mmol/L (3.5-5.1); Sodium Level 131 mmol/L (136-145)
[2019-12-21] MEDS: NICOTINE 14 MG/PAT TD SCH (07:28)
[2019-12-21] MEDS: FAMOTIDINE 20 MG/2 ML VIAL IV SCH ×2 (07:28→19:49)
[2019-12-21] MEDS ORDERED: KCL 20 MEQ/100 mL IVPB 20 MEQ/100 ML BAG IV SCH (08:00)
[2019-12-21] MEDS: CIPROFLOXACIN 400mg IV 400 MG/200 ML BAG IV SCH ×2 (08:39→19:48)
[2019-12-21] MEDS: NA CHLORIDE 0.9% 1,000 ML IV SCH (09:00)
[2019-12-21] MEDS ORDERED: propofoL 200 MG/20 ML VIAL IV ONE (09:57)
[2019-12-21] MEDS ORDERED: ROCURONIUM 50 MG/5 ML VIAL IV ONE (09:58)
[2019-12-21] MEDS ORDERED: LIDOCAINE 1% MPF 5 ML VIAL ONE (09:58)
[2019-12-21] MEDS ORDERED: MIDAZOLAM HCL 2 MG/2 ML INJ ONE (09:58)
[2019-12-21] MEDS ORDERED: FENTANYL CITR 100 MCG/2 ML ONE ×2 (09:58→11:01)
[2019-12-21] MEDS ORDERED: GLYCOPYRROLATE 0.2 MG/ML SYR ONE (11:03)
[2019-12-21] MEDS ORDERED: ONDANSETRON 4 MG/2 ML VIAL ONE (11:03)
[2019-12-21] MEDS ORDERED: NEOSTIGMINE 1 MG/ML -5 ML ONE (11:03)
[2019-12-21] MEDS ORDERED: KETOROLAC 30 MG/ML INJ ONE (11:03)
[2019-12-21] MEDS ORDERED: NA CHLORIDE 0.9% 1,000 ML ONE (11:06)
--- NOTE | 2019-12-21 11:20 | P.OP ---
Plastic Tool Maker: Maricel NGO Preoperative diagnosis: Perforated Appendicitis with Abscess Postoperative diagnosis: same Primary procedure: Diag Lap, Exp Lap, Appy, Drainage Intra-abdominal abscess Anesthesia: gen Estimated blood loss: min Specimen: C&S, Appy Findings: as above Complications: None Drain(s): MICHAEL drain Transferred to: Recovery Room Condition: Good
[2019-12-21] MEDS ORDERED: PROMETHAZINE INJ 25 MG/ML AMP ONE (11:34)
[2019-12-21] MEDS: HYDROMORPHONE HCL 2 MG/ML inj ONE ×4 (11:41→12:04)
[2019-12-21] MEDS: FOLIC ACID 1 MG, MULTIVITAMINS INJ 10 ML, THIAMINE HCL 100 MG in NA CHLORIDE 0.9% 1,000 ML IV SCH (12:32)
[2019-12-21 16:08] LABS: C.diff Antigen/Toxin Ag neg : Tox neg (NEG : NEG)
[2019-12-21] MEDS: HYDROMORPHONE HCL 1 MG/ML INJ IV PRN ×3 (17:04→22:49)
--- NOTE | 2019-12-21 19:32 | P.PN ---
Subjective Date of Service: 12/21/19 Chief Complaint: perforated appendix Status post open appendectomy and drainage of abscess. Patient seen in the postop period. He is currently tolerating clear liquid diet. Physical Examination - Vital Signs Temperature: 98.1 F Blood Pressure: 109/74 Pulse: 77 Respirations: 20 Pulse Ox (%): 99 - Physical Exam General: Alert, In no apparent distress, Oriented x3 HEENT: Mucous membr. moist/pink Neck: Supple, JVD not distended Respiratory: Clear to auscultation bilaterally, Normal air movement Cardiovascular: No edema, Regular rate/rhythm, Normal S1 S2 Gastrointestinal: Non-distended Musculoskeletal: No swelling Integumentary: No rashes Neurological: Normal speech, Normal strength at 5/5 x4 extr Assessment And Plan - Current Problems (Diagnosis) (1) Perforated appendix Current Visit: Yes Status: Acute (2) Intra-abdominal abscess Current Visit: Yes Status: Acute (3) History of gastric ulcer Current Visit: Yes Status: Acute (4) Hyponatremia Current Visit: Yes Status: Acute - Plan Continue current antibiotics. General surgery is following Supportive measures with IV NS, IV pain medication. Continue IV pepcid. Monitor CBC and blood chemistry. DVT prophylaxis with Lovenox.
[2019-12-21] MEDS: ONDANSETRON 4 MG/2 ML VIAL IV PRN (21:39)
[2019-12-21] MEDS: LORazepam 2 MG/ML VIAL IV PRN (21:39)
--- NOTE | 2019-12-21 22:25 | OP ---
Date of Procedure: 12/21/2019 Surgeon: Marvin Shipley MD Sand Mixer Operator: HUBER Tinajero. Preoperative Diagnosis: Perforated appendicitis with abscess. Postoperative Diagnosis: Perforated appendicitis with abscess. Procedure: Diagnostic laparoscopy, exploratory laparotomy, appendectomy, drainage of intraabdominal abscess. Estimated Blood Loss: Minimal. Specimen: Pus in appendix. Findings: As above. Anesthesia: General. Complications: None. Drains: MICHAEL #10 flat x2. Patient tolerated the procedure in stable condition, taken to Recovery in good general condition. Operative Note: Patient was brought to the OR and placed in supine position. General anesthesia was begun. Patient was prepped and draped in usual sterile fashion. Marcaine 0.5% was infiltrated loca lly. 15-blade was used to make a 1 cm infraumbilical midline incision. Subcutaneous tissue divided. Fascia was identified and divided. #1 Vicryl stay suture was placed. Peritoneal cavity was entere d with sharp and blunt dissection. 12 mm trocar was placed into the peritoneal cavity under direct v ision. Pneumoperitoneum was established and then two 5 mm trocars were placed, one in the suprapubic region, one in the left lower quadrant. Laparoscopy revealed a very hard mass which was hard to dis sect laparoscopically, was posterior and lateral to the ascending colon. At this point, I do not wan t to take risking injury to the colon, therefore I opted to open the patient which was done with lowe r midline incision. Subcutaneous tissue divided. Fascia was identified and divided and abdomen was exposed and then the right lateral pericolic gutter was mobilized carefully. Pus was encountered. C ultures were done. There were 2 separate pockets of multiloculated abscess. Wound was irrigated. B leeding controlled with cautery. The appendix was identified in the proximal part of the appendix, a ppeared to be perforated. Mesoappendix and base of the appendix clearly identified. Endo-GONZALO stapli ng device used to divide both structures. Appendix sent to Pathology. Then, after thorough irrigati on of the abdomen no other evidence of disease seen. No bleeding, no bowel injury. Helder lizama x2 placed, one in the right pericolic gutter where the abscess was, the other in the pelvis and t he drain was secured with 3-0 nylon. Midline fascia was closed with #2 nylon. Wound was irrigated. Bleeding controlled with cautery and aminata were used to close the skin sterile dressing was applie d. Patient was awakened and taken to Recovery in good general condition. ROSSY/DEBORA Voice ID: [id number] Report ID: [id number]
[2019-12-22] MEDS: METRONIDAZOLE 500mg IVPB 500 MG/100 ML BAG IV SCH ×5 (00:26→23:47)
[2019-12-22] MEDS: NA CHLORIDE 0.9% 1,000 ML IV SCH ×3 (00:26→15:00)
[2019-12-22 05:14] LABS: Absolute Lymphocytes (CBC) 0.6 K/uL (0.7-4.9); Basophils % 0.3 % (0-1.3); Hematocrit 38.1 % (39.6-49.0); Lymphocytes % 5.1 % (15.3-44.8); MPV 8.6 fL (7.6-11.3); RBC Red Blood Cell Count 3.92 M/uL (4.33-5.43)
[2019-12-22] MEDS: HYDROMORPHONE HCL 1 MG/ML INJ IV PRN ×4 (05:15→20:28)
[2019-12-22 05:33] LABS: BUN Blood Urea Nitrogen 5 mg/dL (7-18); Bicarbonate 27 mmol/L (21-32); Glucose Level 102 mg/dL (74-106); Phosphorus 2.4 mg/dL (2.5-4.9); Potassium 3.5 mmol/L (3.5-5.1); Sodium Level 129 mmol/L (136-145)
[2019-12-22 05:42] LABS: Blood Morphology Comment NOT SEEN (NOT SEEN); Platelet Estimate ADEQ
[2019-12-22] MEDS: CIPROFLOXACIN 400mg IV 400 MG/200 ML BAG IV SCH ×2 (08:32→20:27)
[2019-12-22] MEDS: ENOXAPARIN 40 MG/0.4 ML SQ SCH (08:32)
[2019-12-22] MEDS: NICOTINE 14 MG/PAT TD SCH (08:32)
[2019-12-22] MEDS: FAMOTIDINE 20 MG/2 ML VIAL IV SCH ×2 (08:35→20:28)
[2019-12-22] MEDS: FOLIC ACID 1 MG, MULTIVITAMINS INJ 10 ML, THIAMINE HCL 100 MG in NA CHLORIDE 0.9% 1,000 ML IV SCH (10:55)
--- NOTE | 2019-12-22 11:50 | P.PN ---
Subjective Date of Service: 12/22/19 Chief Complaint: perforated appendix Status post open appendectomy and drainage of abscess. Secondary post-op Patient is tolerating liquid diet. He has good bowel sounds. He has no new complaint. No recorded fever. Leukocytosis has improved. Physical Examination - Vital Signs Temperature: 98.9 F Blood Pressure: 159/85 Pulse: 94 Respirations: 85 Pulse Ox (%): 97 - Physical Exam General: Alert, In no apparent distress, Oriented x3 HEENT: Mucous membr. moist/pink Neck: Supple, JVD not distended Respiratory: Clear to auscultation bilaterally, Normal air movement Cardiovascular: No edema, Regular rate/rhythm, Normal S1 S2 Gastrointestinal: Normal bowel sounds, Non-distended, Other (Surgical wound dressing not soaked, drains in place.) Musculoskeletal: No swelling Integumentary: No rashes Neurological: Normal speech, Normal strength at 5/5 x4 extr Assessment And Plan - Current Problems (Diagnosis) (1) Perforated appendix Current Visit: Yes Status: Acute (2) Intra-abdominal abscess Current Visit: Yes Status: Acute (3) History of gastric ulcer Current Visit: Yes Status: Acute (4) Hyponatremia Current Visit: Yes Status: Acute - Plan Patient is responding to current antibiotics. Continue current antibiotics. General surgery is following Supportive measures with IV NS, IV pain medication. Continue IV pepcid. Monitor CBC and blood chemistry. DVT prophylaxis with Lovenox.
--- NOTE | 2019-12-22 13:11 | PN ---
Date of Progress Note: 12/22/2019 Subjective: Patient is awake, alert, complaining of some incisional pain. Physical Examination: Vital Signs: Stable. He is afebrile. He is tolerating little bit of clear liquids. MICHAEL drain has p ut out minimal serosanguineous fluid. Urine output is more than adequate. Abdomen: Soft, nondistended, minimal incisional tenderness. Positive bowel sounds. His white count is down to 11.8. H and H are stable at 12.8 and 38.1. There is a left shift however . Chemistry reviewed. Assessment: Status post drainage of intraabdominal abscess exploratory laparotomy, and appendectomy. Recommendations: Patient is clinically stable therefore he will be transferred to the floor. Encour age ambulation. Continue antibiotics, incentive spirometry. I will discontinue the Aguirre. Patient i s clinically doing well. /MODL Voice ID: [id number] Report ID: [id number]
[2019-12-22] MEDS: LORazepam 2 MG/ML VIAL IV PRN (15:09)
[2019-12-22] MEDS: ONDANSETRON 4 MG/2 ML VIAL IV PRN (15:09)
[2019-12-23] MEDS: ONDANSETRON 4 MG/2 ML VIAL IV PRN (00:17)
[2019-12-23] MEDS: HYDROMORPHONE HCL 1 MG/ML INJ IV PRN ×3 (00:18→11:05)
[2019-12-23] MEDS: NA CHLORIDE 0.9% 1,000 ML IV SCH ×4 (01:00→20:17)
[2019-12-23 05:25] LABS: Absolute Lymphocytes (CBC) 0.6 K/uL (0.7-4.9); Basophils % 0.2 % (0-1.3); Hematocrit 36.8 % (39.6-49.0); Lymphocytes % 5.3 % (15.3-44.8); MPV 8.2 fL (7.6-11.3); RBC Red Blood Cell Count 3.79 M/uL (4.33-5.43)
[2019-12-23 05:52] LABS: BUN Blood Urea Nitrogen 3 mg/dL (7-18); Bicarbonate 28 mmol/L (21-32); Glucose Level 97 mg/dL (74-106); Potassium 3.2 mmol/L (3.5-5.1); Sodium Level 132 mmol/L (136-145)
[2019-12-23] MEDS: METRONIDAZOLE 500mg IVPB 500 MG/100 ML BAG IV SCH ×4 (06:03→23:22)
[2019-12-23] MEDS: CIPROFLOXACIN 400mg IV 400 MG/200 ML BAG IV SCH ×2 (08:06→20:03)
[2019-12-23] MEDS: FAMOTIDINE 20 MG/2 ML VIAL IV SCH ×2 (08:06→20:03)
[2019-12-23] MEDS: ENOXAPARIN 40 MG/0.4 ML SQ SCH (08:06)
[2019-12-23] MEDS: NICOTINE 14 MG/PAT TD SCH (08:07)
[2019-12-23] MEDS: FOLIC ACID 1 MG, MULTIVITAMINS INJ 10 ML, THIAMINE HCL 100 MG in NA CHLORIDE 0.9% 1,000 ML IV SCH (10:08)
--- NOTE | 2019-12-23 12:23 | P.PN ---
Subjective Date of Service: 12/23/19 Chief Complaint: perforated appendix Status post open appendectomy and drainage of abscess. Patient is doing much better. He states pain is well controlled. He has belching. No BM yet. Patient is tolerating liquid diet. He has good bowel sounds. No recorded fever. Leukocytosis has resolved. Physical Examination - Vital Signs Temperature: 98.3 F Blood Pressure: 121/102 Pulse: 100 Respirations: 85 Pulse Ox (%): 99 - Physical Exam General: Alert, In no apparent distress, Oriented x3 HEENT: Mucous membr. moist/pink, Sclerae nonicteric Neck: Supple Respiratory: Clear to auscultation bilaterally, Normal air movement Cardiovascular: No edema Gastrointestinal: Normal bowel sounds, Non-distended Musculoskeletal: No swelling Integumentary: No rashes Neurological: Normal speech, Normal strength at 5/5 x4 extr Assessment And Plan - Current Problems (Diagnosis) (1) Perforated appendix Current Visit: Yes Status: Acute (2) Intra-abdominal abscess Current Visit: Yes Status: Acute (3) History of gastric ulcer Current Visit: Yes Status: Acute (4) Hyponatremia Current Visit: Yes Status: Acute - Plan Continue current antibiotics. General surgery is following Supportive measures with IV NS, pain medication as needed. Continue IV pepcid. Monitor CBC and blood chemistry. DVT prophylaxis with Lovenox.
--- NOTE | 2019-12-23 13:19 | PN ---
Date of Progress Note: 12/23/2019 Subjective: Patient is awake, alert, tolerating his clear liquids. Physical Examination: Vital Signs: Stable. He is afebrile. His MICHAEL is putting minimal amount of serosanguineous fluid out 10 and 15 respectively. Abdomen: Soft, nondistended, nontender. Positive bowel sounds. Laboratory Data: His white count is down to 10.7. Left shift is still present, however. Electrolyt es are being checked and replace per protocol. Assessment: Exploratory laparotomy for drainage of intraabdominal abscess and appendectomy. Recommendations: Advance diet to full liquids. Decrease IV fluids, KVO. Wound care as ordered. IV antibiotics. Patient is clinically doing well. /MODL Voice ID: [id number] Report ID: [id number]
[2019-12-23] MEDS: LORazepam 2 MG/ML VIAL IV PRN (13:56)
[2019-12-24] MEDS: METRONIDAZOLE 500mg IVPB 500 MG/100 ML BAG IV SCH ×4 (05:01→23:29)
[2019-12-24] MEDS: HYDROMORPHONE HCL 1 MG/ML INJ IV PRN ×4 (05:04→23:27)
[2019-12-24 05:09] LABS: Absolute Lymphocytes (CBC) 0.6 K/uL (0.7-4.9); Hematocrit 37.7 % (39.6-49.0); Lymphocytes % 4.8 % (15.3-44.8); MPV 8.2 fL (7.6-11.3)
[2019-12-24 05:26] LABS: BUN Blood Urea Nitrogen 2 mg/dL (7-18); Bicarbonate 29 mmol/L (21-32); Glucose Level 97 mg/dL (74-106); Potassium 3.3 mmol/L (3.5-5.1); Sodium Level 134 mmol/L (136-145)
[2019-12-24] MEDS ORDERED: POTASSIUM CL SA 10 MEQ TAB PO ONE (06:00)
[2019-12-24] MEDS: ENOXAPARIN 40 MG/0.4 ML SQ SCH (08:36)
[2019-12-24] MEDS: FOLIC ACID 1 MG, MULTIVITAMINS INJ 10 ML, THIAMINE HCL 100 MG in NA CHLORIDE 0.9% 1,000 ML IV SCH (08:37)
[2019-12-24] MEDS: CIPROFLOXACIN 400mg IV 400 MG/200 ML BAG IV SCH (08:37)
[2019-12-24] MEDS: FAMOTIDINE 20 MG/2 ML VIAL IV SCH ×2 (08:37→19:56)
[2019-12-24] MEDS: NICOTINE 14 MG/PAT TD SCH (08:38)
--- NOTE | 2019-12-24 11:12 | P.PN ---
Subjective Date of Service: 12/24/19 Chief Complaint: perforated appendix Status post open appendectomy and drainage of abscess. He is passing gas. He states pain is well controlled. No BM yet. Patient is tolerating liquid diet. He has good bowel sounds. Physical Examination - Vital Signs Temperature: 98.7 F Blood Pressure: 143/81 Pulse: 78 Respirations: 17 Pulse Ox (%): 96 - Physical Exam General: Alert, In no apparent distress, Oriented x3 HEENT: Mucous membr. moist/pink, Sclerae nonicteric Neck: Supple, JVD not distended Respiratory: Clear to auscultation bilaterally, Normal air movement Cardiovascular: No edema, Regular rate/rhythm, Normal S1 S2 Gastrointestinal: Normal bowel sounds, Non-distended Musculoskeletal: No erythema Integumentary: No rashes Assessment And Plan - Current Problems (Diagnosis) (1) Perforated appendix Current Visit: Yes Status: Acute (2) Intra-abdominal abscess Current Visit: Yes Status: Acute (3) History of gastric ulcer Current Visit: Yes Status: Acute (4) Hyponatremia Current Visit: Yes Status: Acute - Plan Bloody fluid culture is growing E. coli. Patient has responded to antibiotics. Continue IV Cipro and Flagyl. Follow E. coli antibiotics sensitivity. Increase activity as tolerated. General surgery is following Continue IV pepcid. Monitor CBC and blood chemistry. DVT prophylaxis with Lovenox.
[2019-12-24] MEDS: CEFEPIME/SWI 2gm 2 GM/20 ML SYR IV SCH ×2 (12:58→19:56)
--- NOTE | 2019-12-24 14:47 | PN ---
Date of Progress Note: 12/24/2019 Subjective: Patient is awake, alert, passing gas. Objective: Vital signs: Stable. Afebrile. Abdomen: MICHAEL drain is putting out serosanguineous and straw-colored fluid. Abdomen is benign. Assessment: Status post exploratory laparotomy, appendectomy, and drainage of intraabdominal abscess . Recommendations: We will advance his diet to a regular diet and if tolerated and if his white count improves tomorrow Friday, we can consider discharge. /MODL Voice ID: [id number] Report ID: [id number]
[2019-12-24] MEDS ORDERED: POTASSIUM 25 MEQ EFFERV TAB PO ONE (16:00)
[2019-12-24 20:42] VITALS: BMI 20.7
[2019-12-24] MEDS: NA CHLORIDE 0.9% 1,000 ML IV SCH (23:28)
[2019-12-25] MEDS ORDERED: DIPHENHYDRAMINE 25 MG TAB/CAP PO ONE (00:06)
[2019-12-25] MEDS: HYDROMORPHONE HCL 1 MG/ML INJ IV PRN (04:37)
[2019-12-25] MEDS: METRONIDAZOLE 500mg IVPB 500 MG/100 ML BAG IV SCH ×3 (05:23→17:21)
[2019-12-25 06:47] LABS: Absolute Lymphocytes (CBC) 0.7 K/uL (0.7-4.9); Basophils % 0.9 % (0-1.3); Hematocrit 37.9 % (39.6-49.0); Lymphocytes % 6.7 % (15.3-44.8); MPV 8.1 fL (7.6-11.3); RBC Red Blood Cell Count 3.87 M/uL (4.33-5.43)
[2019-12-25 07:03] LABS: BUN Blood Urea Nitrogen 2 mg/dL (7-18); Bicarbonate 31 mmol/L (21-32); Glucose Level 91 mg/dL (74-106); Potassium 3.6 mmol/L (3.5-5.1); Sodium Level 136 mmol/L (136-145)
[2019-12-25] MEDS: NICOTINE 14 MG/PAT TD SCH (08:01)
[2019-12-25] MEDS: FAMOTIDINE 20 MG/2 ML VIAL IV SCH ×2 (08:01→20:42)
[2019-12-25] MEDS: ENOXAPARIN 40 MG/0.4 ML SQ SCH (08:02)
[2019-12-25] MEDS ORDERED: BISACODYL 10 MG RECTAL SUPP PR ONE (10:00)
[2019-12-25] MEDS: CEFEPIME/SWI 2gm 2 GM/20 ML SYR IV SCH ×2 (10:11→20:42)
[2019-12-25] MEDS: FOLIC ACID 1 MG, MULTIVITAMINS INJ 10 ML, THIAMINE HCL 100 MG in NA CHLORIDE 0.9% 1,000 ML IV SCH (10:11)
[2019-12-25] MEDS ORDERED: CODEINE 30MG/APAP 300MG TAB PO PRN (11:11)
--- NOTE | 2019-12-25 11:50 | P.PN ---
Subjective Date of Service: 12/25/19 Chief Complaint: perforated appendix Patient is complaining of itching and attributes it to the pain medications. He reports no bowel movement yet He is passing gas sometimes. Patient is tolerating liquid diet. He has good bowel sounds. Physical Examination - Vital Signs Temperature: 97.3 F Blood Pressure: 138/90 Pulse: 75 Respirations: 17 Pulse Ox (%): 94 - Physical Exam General: Alert, In no apparent distress, Oriented x3 HEENT: Mucous membr. moist/pink, Sclerae nonicteric Neck: Supple, JVD not distended Respiratory: Clear to auscultation bilaterally, Normal air movement Cardiovascular: No edema, Regular rate/rhythm, Normal S1 S2 Gastrointestinal: Normal bowel sounds, Soft and benign, Non-distended, No tenderness Musculoskeletal: No swelling, No erythema Integumentary: Other (Dry skin) Neurological: Normal speech, Normal strength at 5/5 x4 extr Assessment And Plan - Current Problems (Diagnosis) (1) Perforated appendix Current Visit: Yes Status: Acute (2) Intra-abdominal abscess Current Visit: Yes Status: Acute (3) History of gastric ulcer Current Visit: Yes Status: Acute (4) Hyponatremia Current Visit: Yes Status: Acute - Plan Bloody fluid culture is growing E. coli. Change antibiotics to IV Rocephin and Flagyl. Increase activity as tolerated. Dulcolax suppository today. Morphine p.o. p.r.n. for pain General surgery is following Continue IV pepcid. DVT prophylaxis with Lovenox.
[2019-12-25] MEDS: MORPHINE 15 MG IR TAB PO PRN ×2 (11:51→17:25)
[2019-12-25 12:26] LABS: Phosphorus 2.6 mg/dL (2.5-4.9)
[2019-12-25] MEDS ORDERED: POTASSIUM 25 MEQ EFFERV TAB PO ONE (14:44)
--- NOTE | 2019-12-25 15:40 | PN ---
Date of Progress Note: 12/25/2019 Subjective: Patient is awake, alert, tolerating diet; however, had a bowel movement. Objective: Vital Signs: Stable. He is afebrile. Abdomen: Benign. Laboratory Data: His platelets are up a little bit. White count is normal and MICHAEL drain has put out significant amount over the last 24 hours of serosanguineous fluid. Assessment: Status post exploratory laparotomy, open appendectomy, and drainage of intraabdominal ab scess. Recommendations: We will keep the patient 1 more day on IV antibiotics. Follow his CBC and probable discharge in a.m. Patient is clinically slowly improving. /MODL Voice ID: [id number] Report ID: [id number]
[2019-12-26] MEDS: MORPHINE 15 MG IR TAB PO PRN (00:24)
[2019-12-26] MEDS: METRONIDAZOLE 500mg IVPB 500 MG/100 ML BAG IV SCH ×3 (00:24→12:00)
[2019-12-26] MEDS: NA CHLORIDE 0.9% 1,000 ML IV SCH (00:33)
[2019-12-26 06:38] LABS: Absolute Lymphocytes (CBC) 1.1 K/uL (0.7-4.9); Basophils % 0.2 % (0-1.3); Hematocrit 36.6 % (39.6-49.0); Lymphocytes % 11.3 % (15.3-44.8); MPV 8.4 fL (7.6-11.3); RBC Red Blood Cell Count 3.78 M/uL (4.33-5.43)
[2019-12-26] MEDS: FOLIC ACID 1 MG, MULTIVITAMINS INJ 10 ML, THIAMINE HCL 100 MG in NA CHLORIDE 0.9% 1,000 ML IV SCH (08:34)
[2019-12-26] MEDS: FAMOTIDINE 20 MG/2 ML VIAL IV SCH (08:34)
[2019-12-26] MEDS: NICOTINE 14 MG/PAT TD SCH (08:36)
[2019-12-26] MEDS: CEFEPIME/SWI 2gm 2 GM/20 ML SYR IV SCH (08:36)
[2019-12-26] MEDS: ENOXAPARIN 40 MG/0.4 ML SQ SCH (08:37)
[2019-12-26] MEDS ORDERED: POTASSIUM CL SA 10 MEQ TAB PO ONE (09:00)
[2019-12-26] MEDS ORDERED: DIPHENHYDRAMINE 12.5MG/5ML LIQ PO ONE (09:00)
[2019-12-26 09:19] VITALS: O2SAT 92
[2019-12-26] MEDS ORDERED: FENTANYL CITR 100 MCG/2 ML IV PRN (09:25)
[2019-12-26] MEDS ORDERED: AZTREONAM 1 GM/VIAL IV SCH (10:00)
--- NOTE | 2019-12-26 10:51 | P.PN ---
Subjective Date of Service: 12/26/19 Chief Complaint: perforated appendix Patient is still complaining of itching. He reports no bowel movement yet He stated he is passing a lot of gas. Patient is tolerating liquid diet. He has good bowel sounds. Physical Examination - Vital Signs Temperature: 97.1 F Blood Pressure: 150/83 Pulse: 67 Respirations: 17 Pulse Ox (%): 96 - Physical Exam General: Alert, In no apparent distress, Oriented x3 HEENT: Mucous membr. moist/pink Neck: Supple, JVD not distended Respiratory: Clear to auscultation bilaterally, Normal air movement Cardiovascular: No edema, Regular rate/rhythm, Normal S1 S2 Gastrointestinal: Normal bowel sounds, Non-distended Musculoskeletal: No swelling Integumentary: Other (Dry skin) Neurological: Normal speech, Normal strength at 5/5 x4 extr Assessment And Plan - Current Problems (Diagnosis) (1) Perforated appendix Current Visit: Yes Status: Acute (2) Intra-abdominal abscess Current Visit: Yes Status: Acute (3) History of gastric ulcer Current Visit: Yes Status: Acute (4) Hyponatremia Current Visit: Yes Status: Acute - Plan Bloody fluid culture is growing E. coli. Antibiotics changed to IV Azactam and Flagyl given patient is itching and has allergy to penicillin. Oral morphine also changed to IV fentanyl p.r.n. Increase activity as tolerated. Dulcolax suppository. General surgery is following Continue IV pepcid. DVT prophylaxis with Lovenox.
[2019-12-26] MEDS ORDERED: AZTREONAM 1 GM in NA CHLORIDE 0.9% 100 ML IV SCH (11:00)
--- NOTE | 2019-12-26 12:13 | P.DS ---
Admission Date: 12/17/19 Discharge Date: 12/26/19 Discharge Condition: GOOD Reason for Admission: perforated appendix Consultations: General Surgery Procedures: Diagnostic laparoscopy, exploratory laparotomy, appendectomy, drainage of intraabdominal abscess. - Problems (1) Perforated appendix Current Visit: Yes Status: Acute (2) Intra-abdominal abscess Current Visit: Yes Status: Acute (3) History of gastric ulcer Current Visit: Yes Status: Acute (4) Hyponatremia Current Visit: Yes Status: Acute Brief History of Present Illness: 59-year-old gentleman with remote history of perforated gastric ulcer presented to the emergency department with a complaint of abdominal pain. CT abdomen and pelvis reported the phlegmon and possible perforated appendicitis. The patient was admitted for further management. Hospital Course: Patient admitted to the medical floor and started on antibiotic therapy. He was evaluated by general surgery , patient underwent diagnostic laparoscopy, exploratory laparotomy appendectomy and drainage of intra- abdominal abscess. He was monitored briefly in the ICU after the surgery. Culture of the abscess fluid grew E. coli. Patient was treated with IV cefepime and Flagyl. Noted the E. coli is resistant to fluoroquinolones. Noted patient has allergy to penicillin. He started itching with the cefepime today. He had leukocytosis which resolved with treatment. He is deemed clinically stable for discharge per Dr. Shipley. Patient is discharged with oral Flagyl and doxycycline for 10 days. He will follow with Dr. Shipley as outpatient for follow-up. Vital Signs/Physical Exam: Temp Pulse Resp BP Pulse Ox 97.1 F 67 17 150/83 H 96 12/26/19 10:51 12/26/19 10:51 12/26/19 10:51 12/26/19 10:51 12/26/19 10:51 General: Alert, In no apparent distress, Oriented x3 HEENT: Mucous membr. moist/pink, Sclerae nonicteric Neck: Supple, JVD not distended Respiratory: Clear to auscultation bilaterally, Normal air movement Cardiovascular: No edema, Regular rate/rhythm, Normal S1 S2 Gastrointestinal: Normal bowel sounds, Soft and benign, Non-distended, Other ( MICHAEL drains in place) Musculoskeletal: No swelling, No erythema Integumentary: Other (Dry skin) Neurological: Normal speech, Normal strength at 5/5 x4 extr Laboratory Data at Discharge: WBC 10.1 K/uL (4.3-10.9) 12/26/19 05:35 Hgb 12.5 g/dL (13.6-17.9) L 12/26/19 05:35 Hct 36.6 % (39.6-49.0) L 12/26/19 05:35 Plt Count 471 K/uL (152-406) H 12/26/19 05:35 PT 15.3 SECONDS (9.5-12.5) H 12/18/19 03:10 INR 1.31 12/18/19 03:10 Sodium 136 mmol/L (136-145) 12/25/19 06:11 Potassium 3.6 mmol/L (3.5-5.1) 12/25/19 06:11 BUN 2 mg/dL (7-18) L 12/25/19 06:11 Creatinine 0.56 mg/dL (0.55-1.3) 12/25/19 06:11 Glucose 91 mg/dL (74-106) 12/25/19 06:11 Phosphorus 2.6 mg/dL (2.5-4.9) 12/25/19 06:11 Magnesium 2.0 mg/dL (1.8-2.4) 12/25/19 06:11 Total Bilirubin 0.8 mg/dL (0.2-1.0) 12/18/19 04:04 AST 7 U/L (15-37) L 12/18/19 04:04 ALT 13 U/L (12-78) 12/18/19 04:04 Alkaline Phosphatase 92 U/L (45-117) 12/18/19 04:04 Triglycerides 73 mg/dL (<150) 12/18/19 04:04 Cholesterol 156 mg/dL (<200) 12/18/19 04:04 HDL Cholesterol 41 mg/dL (40-60) 12/18/19 04:04 Cholesterol/HDL Ratio 3.80 12/18/19 04:04 Lipase 53 U/L (73-393) L 12/17/19 17:40 Home Medications: Codeine/APAP [Tylenol W/Codeine #3 tab] 1 tab PO Q4H PRN #20 tab 12/26/19 Doxycycline Hyclate 100 mg PO BID #20 capsule 12/26/19 metroNIDAZOLE [Flagyl] 500 mg PO Q8H 10 Days #30 tablet 12/26/19 New Medications: Codeine/APAP [Tylenol W/Codeine #3 tab] 1 tab PO Q4H PRN #20 tab PRN Reason: Pain Scale 5-7 (Moderate) Doxycycline Hyclate 100 mg PO BID #20 capsule metroNIDAZOLE [Flagyl] 500 mg PO Q8H 10 Days #30 tablet Patient Discharge Instructions: may shower. keep wound clean and dry. Record MICHAEL q12. Bring Record to office. Strip tubing prn Diet: Regular Activity: No lifting more than 10 lbs Followup: Marvin Shipley MD [ACTIVE - CAN ADMIT] - 12/30/19 Time spent managing pt's care (in minutes): 36
--- NOTE | 2019-12-26 13:01 | PN ---
Date of Progress Note: 12/26/2019 Patient is awake, alert, tolerating diet, ambulating, pain controlled on p.o. pain medication, afebri le. White count is normal. MICHAEL is draining serosanguineous drainage. Bowels are stable. He is afeb rile. He has had bowel movements. Abdomen is benign. Assessment: Status post exploratory laparotomy, appendectomy and drainage of intraabdominal abscess. Recommendations: Patient cleared from surgery for discharge with Isela Souza. Prescription given. Instruction for drain care given. Follow up in my office on . Call for appointment. /MODL Voice ID: [id number] Report ID: [id number]
[2019-12-26 13:10] VITALS: BP 155/84; TEMP 97.3
== END 2019-12-26 13:17 | disposition home or self-care (01) | DRG 339 ==
LOC: ER 16:23 → ERHOLD 23:55 → 4TH 12-18 12:37 → 3RD-ICU 12-21 12:03 → 2ND 12-24 20:10
PROVIDERS: ADMIT Internal Medicine; ATTEND Internal Medicine
PROC: 0WJG4ZZ Inspection of Peritoneal Cavity, Percutaneous Endoscopic Approach (ICD-10-PCS; 2019-12-21)
PROC: 0DTJ0ZZ Resection of Appendix, Open Approach (ICD-10-PCS; principal; 2019-12-21 10:15)
DX: K35.33 Acute appendicitis with perforation, localized peritonitis, and gangrene, with abscess (principal); E87.1 Hypo-osmolality and hyponatremia; F10.10 Alcohol abuse, uncomplicated; F17.210 Nicotine dependence, cigarettes, uncomplicated
CPT/HCPCS: 36415; 74176; 74177; 74178; 80048; 80053; 80061; 80076; 81001; 83605; 83690; 83735; 84100; 84132; 84145; 84443; 85025; 85610; 87040; 87045; 87046; 87070; 87075; 87077; 87185; 87186; 87205; 87324; 87449; 88304; 94640; 96361; 96365; 96366; 96375; 97110; 97116; 97161; 97530; 99285; C9113; J0692; J0744; J1170; J1200; J1650; J2250; J2270; J2405; J2550; J2704; J2710; J3010; J3411; J7030; Q0163; Q9967

== ENCOUNTER 2024-07-15 16:47 | Emergency (ER) | payer SELFPAY ==
[2024-07-15] MEDS ORDERED: METOCLOPRAMIDE 10 MG/2mL INJ ONE (17:04)
[2024-07-15] MEDS ORDERED: NA CHLORIDE 0.9% 1,000 ML ONE (17:04)
[2024-07-15] MEDS ORDERED: Magnesium Sulfate 2gm IVPB 2 G/50 ML BAG IV ONE (17:05)
[2024-07-15 17:09] LABS: Absolute Eosinophils 0.1 K/uL (0-0.5); Absolute Lymphocytes (CBC) 1.1 K/uL (0.7-4.9); Absolute Monocytes 0.7 K/uL (0.1-1.3); Absolute Neutrophil 7.5 K/uL (1.8-8.0); Basophils % 0.5 % (0-1.3); Eosinophils % 0.7 % (0-4.4); Hematocrit 48.5 % (39.6-49.0); Hemoglobin 16.1 g/dL (13.6-17.9); Lymphocytes % 11.7 % (15.3-44.8); MCH 33.7 pg (27.0-35.0); MCHC 33.3 g/dL (32.0-36.0); MCV 101.3 fL (80-100); MPV 7.9 fL (7.6-11.3); Monocytes % 7.1 % (3.3-12.3); Platelets 236 thou/uL (152-406); RBC Red Blood Cell Count 4.79 M/uL (4.33-5.43); Red Cell Distribution Width 13.4 % (12.1-15.2)
[2024-07-15 17:30] LABS: Anion Gap 12.7 mEq/L (5.0-15.0); Potassium 3.7 mEq/L (3.5-5.1)
--- NOTE | 2024-07-15 18:28 | RAD REPORT ---
EXAM DESCRIPTION: CT - Head Brain Wo Cont - 07/15/2024 5:37 pm CLINICAL HISTORY: headache, htn COMPARISON: No comparisons TECHNIQUE: Noncontrast head CT images were obtained without IV contrast. Multiplanar reformats were generated and reviewed. All CT scans are performed using dose optimization technique as appropriate and may include automated exposure control or mA/KV adjustment according to patient size. FINDINGS: No intracranial hemorrhage, mass, or edema. Midline structures are unremarkable. Normal ventricular caliber for age. Hicks-white matter differentiation is preserved, without evidence of acute infarct. No abnormal extra- axial fluid collections. Patchy deep white matter hypodensities, most pronounced in the left peritrigonal region, nonspecific but suggestive of chronic small vessel ischemic changes. Mastoid air cells and visualized portions of the paranasal sinuses are clear. No acute bony findings. IMPRESSION: No evidence of an acute intracranial process.
--- NOTE | 2024-07-15 18:50 | EDPHYS ---
Physician Documentation [facility] [place] Name: Riccardo Shankar Age: 64 yrs Sex: Male : 1960 Arrival Date: 07/15/2024 Time: 16:47 Bed 20 Private MD: ED Physician Long Stinson HPI: 07/15 16:58 This 64 yrs old Male presents to ER via Unassigned with complaints of ec2 Headache, High Blood Pressure. Historical: - Allergies: 17:02 PENICILLINS; ko1 17:02 Codeine; ko1 - Home Meds: 17:02 None [Active]; ko1 - PMHx: 17:02 GI Bleed; ko1 - PSHx: 17:02 Unable to Obtain; ko1 - Immunization history:: Adult Immunizations unknown. - Infectious Disease History:: Denies. - Social history:: Smoking status: Patient reports the use of cigarette tobacco products, smokes one pack cigarettes per day. Patient uses alcohol, on a daily basis. ROS: 17:12 Constitutional: as per hpi ec2 Exam: 17:11 Constitutional: GEN: NAD Head: atraumatic Eyes: EOMI Ears: External ears are ec2 normal. CV: regular rate LUNGS: no respiratory distress ABD: non-distended SKIN: no evidence of rashes MSK: no evidence of trauma. Neuro: Cranial nerves II through XII intact, strength intact all 4 extremities. Vital Signs: 16:58 BP 225 / 119; Pulse 79; Resp 14; Temp 97; Pulse Ox 100% ; ko1 17:25 BP 181 / 107; Pulse 68; Resp 18; Pulse Ox 100% ; Weight 90.72 kg; Height 6 ft. 0 in. ; mb9 18:37 BP 197 / 99; Pulse 61; Resp 18; Pulse Ox 100% on R/A; mb9 19:00 BP 185 / 98; Pulse 64; Resp 18; Pulse Ox 100% on R/A; mb9 17:25 Body Mass Index 27.12 (90.72 kg, 182.88 cm) mb9 MDM: 16:57 Patient medically screened. ec2 17:11 TNKase (Tenecteplase) Screening: Not Applicable. Data reviewed: vital signs. ED course: ec2 Patient arrives today for evaluation of headache. EKG obtained, independently reviewed and interpreted by me, shows normal sinus rhythm, rate of 69, no acute ST segment elevations, and was nonconcerning. Patient has a nonfocal neurologic examination. Patient may complain of headache and high blood pressure patient otherwise has no slurred speech or focal deficit to indicate stroke alert. Will obtain lab work, CT imaging of the head to evaluate for brain bleed and mass. Also looking for nonspecific migraine syndrome.. 18:29 ED course: CT scan of the head shows no acute intracranial process.. ec2 18:45 ED course: On reassessment patient reports some improvement in headache. Will discharge ec2 home, prescribed the patient antihypertensives, no evidence of endorgan damage. Patient's symptoms does not fit with a stroke without focal deficit.. 07/15 16:58 Order name: Basic Metabolic Panel; Complete Time: 17:32 ec2 07/15 16:58 Order name: CBC with Diff; Complete Time: 17:32 ec2 07/15 16:58 Order name: Troponin HS; Complete Time: 17:32 ec2 07/15 17:05 Order name: Glucose, Ancillary Testing; Complete Time: 17:32 EDMS 07/15 16:58 Order name: CT Head Brain wo Cont; Complete Time: 18:29 ec2 07/15 16:58 Order name: Cardiac monitoring; Complete Time: 17:08 ec2 07/15 16:58 Order name: EKG - Nurse/Tech; Complete Time: 17:08 ec2 07/15 16:58 Order name: IV Saline Lock; Complete Time: 17:08 ec2 07/15 16:58 Order name: Labs collected and sent; Complete Time: 17:08 ec2 07/15 16:58 Order name: O2 Per Protocol; Complete Time: 17:08 ec2 07/15 16:58 Order name: O2 Sat Monitoring; Complete Time: 17:08 ec2 Administered Medications: 17:15 Drug: NS 0.9% IV 1000 ml IV at 1 bolus Per protocol; 1000 mL bolus Route: IV; Rate: 1 ar6 bolus; Site: right antecubital; 18:10 Follow up: Response: No adverse reaction; IV Status: Completed infusion mb9 17:15 Drug: Magnesium Sulfate IVPB 2 grams IVPB bolus over 30 mins Route: IVPB; Infused Over: ar6 30 mins; Site: right antecubital; 18:10 Follow up: Response: No adverse reaction; IV Status: Completed infusion mb9 17:15 Drug: metoCLOPramide IVP 10 mg IVP once; over 1 to 2 minutes Route: IVP; Site: right ar6 antecubital; 17:56 Follow up: Response: No adverse reaction mb9 18:54 Drug: Ketorolac IVP 15 mg IVP once Route: IVP; Site: right antecubital; mb9 18:59 Follow up: Response: No adverse reaction mb9 19:01 Follow up: Response: No adverse reaction ar6 Disposition Summary: 07/15/24 18:49 Discharge Ordered Notes: Location: Home ec2 Condition: Stable ec2 Diagnosis - Headache ec2 - Essential (primary) hypertension ec2 Followup: ec2 - With: Private Physician - When: - Reason: Re-evaluation by your physician Discharge Instructions: - Discharge Summary Sheet ec2 - General Headache Without Cause ec2 Forms: - Medication Reconciliation Form ec2 - Antibiotic Education ec2 - Prescription Opioid Use ec2 - Patient Portal Instructions ec2 - Leadership Thank You Letter ec2 Prescriptions: - Compazine 10 mg Oral Tablet - take 1 tablet ORAL route every 8 hours As needed; 20 tablet; Refills: 0, ec2 Product Selection Permitted - Hydrochlorothiazide 25 mg Oral Tablet - take 1 tablet ORAL route once daily .; 30 tablet; Refills: 0, Product Selection ec2 Permitted Signatures: Dispatcher [employer] EDMahogany Abdi, RN RN ko1 Nicole Hernandez RN RN mb9 Long Stinson MD MD ec2 Lisa Tracey RN RN ar6 Corrections: (The following items were deleted from the chart) 16:58 16:58 BASIC METABOLIC PANEL+C.LAB.BRZ ordered. EDMS EDMS 16:58 16:58 CBC+H.LAB.BRZ ordered. EDMS EDMS 16:58 16:58 Troponin High Sensitivity+C.LAB.BRZ ordered. EDMS EDMS 16:59 16:58 Head Brain Wo Cont+CT.RAD.BRZ ordered. EDMS EDMS
--- NOTE | 2024-07-15 18:50 | ER ---
Nurse's Notes [facility] Name: Riccardo Shankar Age: 64 yrs Sex: Male : 1960 Arrival Date: 07/15/2024 Time: 16:47 Bed 20 Private MD: Diagnosis: Headache;Essential (primary) hypertension Presentation: 07/15 16:58 Chief complaint: Spouse and/or significant other states: received a text from patient koRod that didn't make any sense about 2 hours ago. Went to urgent care and they sent him here for possible stroke. Quit drinking four days ago, blood pressure is high and seeing colors in right eye. Had right arm numbness yesterday. Coronavirus screen: At this time, the client does not indicate any symptoms associated with coronavirus-19. Ebola Screen: No symptoms or risks identified at this time. Initial Sepsis Screen: Does the patient meet any 2 criteria? No. Patient's initial sepsis screen is negative. Does the patient have a suspected source of infection? No. Patient's initial sepsis screen is negative. Risk Assessment: Do you want to hurt yourself or someone else? Patient reports no desire to harm self or others. Onset of symptoms was July 15, 2024 at 14:30. 16:58 Method Of Arrival: Ambulatory ko1 16:58 Acuity: SRIDEVI 3 ko1 Triage Assessment: 17:02 Headache History: Denies prior headaches. General: Appears unkempt, Behavior is calm, ko1 cooperative, appropriate for age. Pain: Complains of pain in headache Pain currently is 10 out of 10 on a pain scale. Pain began gradually, Also complains of no other associated symptoms. Neuro: No deficits noted. Reports headache in entire. Historical: - Allergies: 17:02 PENICILLINS; ko1 17:02 Codeine; ko1 - Home Meds: 17:02 None [Active]; ko1 - PMHx: 17:02 GI Bleed; ko1 - PSHx: 17:02 Unable to Obtain; ko1 - Immunization history:: Adult Immunizations unknown. - Infectious Disease History:: Denies. - Social history:: Smoking status: Patient reports the use of cigarette tobacco products, smokes one pack cigarettes per day. Patient uses alcohol, on a daily basis. Screenin:09 [facility] ED Fall Risk Assessment (Adult) History of falling in the last 3 months, mb9 including since admission No falls in past 3 months (0 pts) Confusion or Disorientation No (0 pts) Intoxicated or Sedated No (0 pts) Impaired Gait No (0 pts) Mobility Assist Device Used No (0 pt) Altered Elimination No (0 pt) Score/Fall Risk Level 0 - 2 = Low Risk Oriented to surroundings, Maintained a safe environment, Educated pt \T\ family on fall prevention, incl call for assistance when getting out of bed. Abuse screen: Denies threats or abuse. Nutritional screening: No deficits noted. Tuberculosis screening: No symptoms or risk factors identified. Assessment: 17:13 General: Appears uncomfortable, Behavior is cooperative. Pain: Complains of pain in mb9 head Pain radiates to neck Pain currently is 9 out of 10 on a pain scale. Quality of pain is described as throbbing, Pain began suddenly, Is continuous. Neuro: Mckeon Agitation-Sedation Scale (RASS): 0 - Alert and Calm Level of Consciousness is awake, alert, obeys commands, Oriented to person, place, time, situation, Appropriate for age Reports headache. Cardiovascular: Patient's skin is warm and dry. Rhythm is regular. Respiratory: Airway is patent Respiratory effort is even, unlabored, Respiratory pattern is regular, symmetrical. GI: Abdomen is round non-distended, Abd is soft and non tender X 4 quads. : No signs and/or symptoms were reported regarding the genitourinary system. Derm: Skin is pink, warm \T\ dry. Musculoskeletal: Range of motion: intact in all extremities. 18:10 Reassessment: No changes from previously documented assessment. Patient and/or family mb9 updated on plan of care and expected duration. Pain level reassessed. Patient is alert, oriented x 3, equal unlabored respirations, skin warm/dry/pink. Vital Signs: 16:58 BP 225 / 119; Pulse 79; Resp 14; Temp 97; Pulse Ox 100% ; ko1 17:25 BP 181 / 107; Pulse 68; Resp 18; Pulse Ox 100% ; Weight 90.72 kg; Height 6 ft. 0 in. ; mb9 18:37 BP 197 / 99; Pulse 61; Resp 18; Pulse Ox 100% on R/A; mb9 19:00 BP 185 / 98; Pulse 64; Resp 18; Pulse Ox 100% on R/A; mb9 17:25 Body Mass Index 27.12 (90.72 kg, 182.88 cm) mb9 ED Course: 16:48 Patient arrived in ED. im 16:49 Long Stinson MD is Attending Physician. ec2 17:02 Triage completed. ko1 17:02 Arm band placed on right wrist. Patient placed in an exam room, on a stretcher, on ko1 engine monitor, on pulse oximetry, Patient notified of wait time. 17:08 Placed in gown. Bed in low position. Call light in reach. Side rails up X 1. Provided mb9 Education on: press call light if needing anything. Client placed on continuous cardiac and pulse oximetry monitoring. NIBP monitoring applied. classroom monitor on. Door closed. Noise minimized. Warm blanket given. Pillow given. 17:08 Basic Metabolic Panel Sent. mb9 17:08 CBC with Diff Sent. mb9 17:08 Troponin HS Sent. mb9 17:08 Initial lab(s) drawn, by me, sent to lab. EKG done, by ED staff, reviewed by Long Stinson MD. Inserted saline lock: 20 gauge in right antecubital area, using aseptic technique. Blood collected. Flushed with 10 mL NS. 17:25 Nicole Hernandez, GI is Primary Nurse. mb9 17:32 Patient requests pain medication. mb9 17:38 CT Head Brain wo Cont In Process Unspecified. EDMS 18:37 No provider procedures requiring assistance completed. mb9 18:59 IV discontinued, intact, bleeding controlled, No redness/swelling at site. Pressure mb9 dressing applied. Administered Medications: 17:15 Drug: NS 0.9% IV 1000 ml IV at 1 bolus Per protocol; 1000 mL bolus Route: IV; Rate: 1 ar6 bolus; Site: right antecubital; 18:10 Follow up: Response: No adverse reaction; IV Status: Completed infusion mb9 17:15 Drug: Magnesium Sulfate IVPB 2 grams IVPB bolus over 30 mins Route: IVPB; Infused Over: ar6 30 mins; Site: right antecubital; 18:10 Follow up: Response: No adverse reaction; IV Status: Completed infusion mb9 17:15 Drug: metoCLOPramide IVP 10 mg IVP once; over 1 to 2 minutes Route: IVP; Site: right ar6 antecubital; 17:56 Follow up: Response: No adverse reaction mb9 18:54 Drug: Ketorolac IVP 15 mg IVP once Route: IVP; Site: right antecubital; mb9 18:59 Follow up: Response: No adverse reaction mb9 19:01 Follow up: Response: No adverse reaction ar6 Medication: 17:09 VIS not applicable for this client. mb9 Outcome: 18:49 Discharge ordered by . [email or web address] 19:00 Discharged to home ambulatory, mb9 19:00 Condition: stable 19:00 Discharge instructions given to patient, Instructed on discharge instructions, follow up and referral plans. Demonstrated understanding of instructions, follow-up care, medications, Prescriptions given X 3, 19:00 Patient left the ED. mb9 Signatures: Dispatcher [employer] EDMahogany Abdi RN RN koRod Hernandez, Nicole Campbell RN RN mb9 Ellen Negro Edwin, MD MD ec2 Lisa Tracey RN RN ar6 Corrections: (The following items were deleted from the chart) 17:26 17:25 BP 181 / 107; Pulse 68bpm; Resp 18bpm; Pulse Ox 100%; mb9 mb9
[2024-07-15] MEDS ORDERED: KETOROLAC 30 MG/ML INJ ONE (18:52)
[2024-07-15 19:44] VITALS: TEMP 97; O2SAT 100
[2024-07-15 19:49] VITALS: BP 185/98
--- NOTE | 2024-07-16 13:28 | EKG ---
Test Date: 2024-07-15 Test Time: 17:04:06 Babbitter: MB MEASUREMENT RESULTS: Intervals: Rate: 69 IN: 148 QRSD: 78 QT: 394 QTc: 422 [place]: P: 73 IN: 148 QRS: 29 T: 61 INTERPRETIVE STATEMENTS: Normal sinus rhythm Normal ECG No previous ECG available for comparison Electronically Signed On 07-16-24 13:26:31 CDT by Carlos A Bernal
== END 2024-07-15 19:00 | disposition home or self-care (01) ==
LOC: ER 16:47
DX: R51.9 Headache, unspecified (principal); I10 Essential (primary) hypertension; F17.210 Nicotine dependence, cigarettes, uncomplicated
CPT/HCPCS: 36415; 70450; 80048; 82947; 84484; 85025; 93005; 96365; 96375; 99285; J2765; J3475; J7030